=== PATIENT | male | born 1950 | race Two or more races ===

== ENCOUNTER → 2024-03-12 09:48 | Outpatient (REF) | payer OTHER, SELFPAY | LOC: RCS 09:48 | PROVIDERS: ATTENDING PHYSICIAN Internal Medicine Interventional Cardiology; FAMILY PHYSICIAN Family Medicine | DX: I25.2 Old myocardial infarction (principal) | CPT/HCPCS: 93017; 93350 ==

== ENCOUNTER → 2024-11-11 12:41 | Outpatient (REF) | payer OTHER, MEDICARE, SELFPAY | LOC: RCS 12:41 | PROVIDERS: ATTENDING PHYSICIAN Internal Medicine Cardiovascular Disease; FAMILY PHYSICIAN Family Medicine | DX: Z01.818 Encounter for other preprocedural examination (principal); C49.9 Malignant neoplasm of connective and soft tissue, unspecified | CPT/HCPCS: 93306 ==